=== PATIENT | male | born 1935 | race Two or more races ===

== ENCOUNTER 2017-02-13 18:31 | Inpatient (IN) | payer MEDICARE, OTHER ==
[~2017-02-13] VITALS: Ht 165.1 cm; Wt 70.3 kg
--- NOTE | 2017-02-13 18:45 | NUR ---
BB PRIVATE AMBULANCE FROM [facility] SENT BY PMD FOR VERTIGO AND TROUBLE AMBULATING, NAD NOTED, VSS, EKG AT BS. WAITING FOR EVAL.
--- NOTE | 2017-02-13 19:10 | NUR ---
BLOOD SAMPLE AND URINE SENT TO LAB
[2017-02-13 19:12] LABS: BASOPHILS # (AUTO) 0.4 /CMM (0.0-0.2); BASOPHILS % (AUTO) 4.7 % (0.0-2.0); EOSINOPHILS # (AUTO) 0.2 /CMM (0.0-0.7); EOSINOPHILS % (AUTO) 2.1 % (0.0-6.0); HEMATOCRIT 44 % (39-51); HEMOGLOBIN 14.6 g/dL (13.5-17.5); LYMPHOCYTES # (AUTO) 1.3 /CMM (0.8-4.8); LYMPHOCYTES % (AUTO) 15.1 % (20.0-44.0); MEAN CORPUSCULAR HEMOGLOBIN 28 PG (26.0-33.0); MEAN CORPUSCULAR HGB CONC 33 g/dl (31.0-36.0); MEAN CORPUSCULAR VOLUME 86 fL (80-96); MONOCYTES # (AUTO) 0.7 /CMM (0.1-1.30); MONOCYTES % (AUTO) 8.5 % (2.0-12.0); NEUTROPHILS # (AUTO) 6.1 /CMM (1.8-8.9); NEUTROPHILS % (AUTO) 69.6 % (43.0-81.0); PLATELET COUNT (AUTO) 177 /CMM (150-450); RDW COEFFICIENT OF VARIATION 13.4 (11.5-15.0); RED BLOOD CELL COUNT(AUTO) 5.14 MIL/uL (4.5-6.0); WHITE BLOOD COUNT (AUTO) 8.7 K/uL (4.3-11.0)
[2017-02-13 19:15] LABS: APPEARANCE,URINE Clear (CLEAR); BILIRUBIN,URINE Negative (NEGATIVE); BLOOD, URINE Moderate Ery/uL (NEGATIVE); COLOR,URINE Yellow (YELLOW); KETONES,URINE Negative (NEGATIVE); LEUKOCYTE ESTERASE ,URINE Negative (NEGATIVE); NITRITE, URINE Negative (NEGATIVE); PROTEIN,URINE Negative (NEGATIVE); UGLUCOSE Negative (NEGATIVE); UROBILINOGEN,URINE 0.2 EU/dL (0.2)
[2017-02-13 19:34] LABS: INR 0.94 (0.87-1.13); PROTHROMBIN TIME 9.8 SECS (9.5-12.7)
[2017-02-13 19:38] LABS: BACTERIA,URINE Rare /HPF (None Seen); MUCUS,URINE Few /LPF (None Seen); SQUAMOUS EPITHELIAL CELL,UR Rare /HPF (None Seen); URINE AMORPHOUS URATE Few /HPF (None Seen)
[2017-02-13 19:39] LABS: THYROID STIMULATING HORMONE 0.184 uIU/mL (0.358-3.74)
--- NOTE | 2017-02-13 19:39 | NUR ---
PT TO CT SCAN
[2017-02-13 19:43] LABS: CALCIUM, SERUM 8.8 mg/dL (8.5-10.1); CARBON DIOXIDE 27 mmol/L (21-32); CHLORIDE 105 mmol/L (98-107); GLUCOSE 104 mg/dL (74-106); SODIUM SERUM 139 mmol/L (136-145); UREA NITROGEN, BLOOD 18 mg/dL (7-18)
[2017-02-13 19:45] LABS: TROPONIN I < 0.017 ng/mL (0.00-0.056)
[2017-02-13 19:49] LABS: ALANINE AMINOTRANSFERASE 19 U/L (12-78); ALBUMIN 3.6 g/dL (3.4-5.0); ALCOHOL, BLOOD < 3 mg/dL (0-0); ALKALINE PHOSPHATASE 82 U/L (46-116); ASPARTATE AMINOTRANSFERASE 20 U/L (15-37); BILIRUBIN,DIRECT 0.2 mg/dL (0.0-0.2); BILIRUBIN,TOTAL 1.3 mg/dL (0.2-1.0); TOTAL PROTEIN, SERUM 7.4 g/dL (6.4-8.2)
[2017-02-13 19:52] LABS: ACETAMINOPHEN 0 ug/ml (10-30); SALICYLATE 1.7 mg/dL (2.8-20.0)
--- NOTE | 2017-02-13 20:08 | NUR ---
Landry tolliver in [facility] - 02/13/17 at 2030 by PILY ANA ROSA SUTHERLAND CALLED WITH BED [id number] CALLBACK NUMBER FOR NURSING REPORT: TRANSPORTATION ETA: 21:03
[2017-02-13 23:00] VITALS: BP 144/75
[2017-02-13] MEDS ORDERED: MAGNESIUM HYDROXIDE 30 ML UDC PO PRN (23:30)
[2017-02-13] MEDS ORDERED: ENOXAPARIN SODIUM 40 MG/0.4 ML DISP.SYRIN SQ SCH (23:30)
[2017-02-13] MEDS ORDERED: HYDROCODONE/APAP 5/325MG 1 EACH TABLET PO PRN (23:30)
[2017-02-13] MEDS ORDERED: ACETAMINOPHEN 325 MG TABLET PO PRN (23:30)
[2017-02-13] MEDS ORDERED: ONDANSETRON HCL/PF 4 MG/2 ML VIAL IVP PRN (23:30)
[2017-02-13] MEDS ORDERED: Z GUARD REMEDY 2 OZ OINT TP PRN (23:30)
--- NOTE | 2017-02-13 23:30 | NUR ---
MEASUREMENT AND SENSING TECHNICIAN NOTE: RECEIVED PATIENT FROM ER, NO ACUTE DISTRESS NOTED. BREATHING EVEN AND UNLABORED, NO SOB NOTED. IV TO LAC IN PLACE. ORIENTED PATIENT TO ROOM AND USE OF CALL LIGHT. BED LOCKED AND IN LOWEST POSITION, CALL LIGHT IN REACH. WILL CONTINUE TO MONITOR.
[2017-02-13] MEDS ORDERED: INSU100V26 IJ (23:48)
[2017-02-13] MEDS ORDERED: CARV3.122 PO (23:48)
[2017-02-13] MEDS ORDERED: ATOR10TA PO (23:48)
[2017-02-13] MEDS ORDERED: DONE10TA44 PO (23:48)
[2017-02-13] MEDS ORDERED: ASPI81TA2 PO (23:48)
[2017-02-13] MEDS ORDERED: LOSA25TA13 PO (23:48)
[2017-02-13] MEDS ORDERED: CHOL200026 PO (23:48)
[2017-02-13] MEDS ORDERED: ASCO500T9 PO (23:48)
[2017-02-13] MEDS ORDERED: CALC1TAB30 PO (23:48)
[2017-02-13] MEDS ORDERED: DOCU-25 PO (23:48)
--- NOTE | 2017-02-14 00:15 | NUR ---
MAINTENANCE SERVICE SUPERVISOR NOTE: PATIENT CONFUSED AND REMOVING TELE MONITOR AND WANDERING AROUND ROOM. REORIENTED PATIENT THAT HE IS IN THE HOSPITAL. CALLED ALPINE GUIDE YURIY CLAROS, LORRI IF WE CAN GET A SITTER FOR PATIENT SAFETY AND TO PREVENT FALLS. OK FOR SITTER. WILL CONTINUE TO MONITOR.
[2017-02-14] MEDS ORDERED: ENOXAPARIN SODIUM 40 MG/0.4 ML DISP.SYRIN SQ ONE (00:20)
[2017-02-14] MEDS ORDERED: *INSULIN REGULAR(HUMULIN R)HUM 100 UNIT/ML VIAL SQ PRN (02:00)
[2017-02-14] MEDS ORDERED: DEXTROSE 50%-WATER 50 ML DISP.SYRIN IV PRN (02:00)
--- NOTE | 2017-02-14 06:45 | NUR ---
CONSULTING MANAGER NOTE: RECEIVED PATIENT FROM ER, NO ACUTE DISTRESS NOTED. BREATHING EVEN AND UNLABORED, NO SOB NOTED. IV TO LAC IN PLACE. PATIENT BLOOD SUGAR LEVEL 122 MG/DL, NO INSULIN NEEDED PER SLIDING SCALE. NO S/S OF HYPER/HYPOGLYCEMIA NOTED. BED LOCKED AND IN LOWEST POSITION, CALL LIGHT IN REACH. WILL ENDORSE TO DAY NURSE TO CONTINUE WITH PLAN OF CARE.
--- NOTE | 2017-02-14 07:10 | NUR ---
ACCESS ASSOC NOTES RECEIVED PATIENT IN BED, SLEEPING, AROUSES EASILY. LEADS OFF. BREATHING EVEN AND NON LABORED, ON ROOM AIR, NO SOB. NO IV IN PLACE. WILL RE-INSERT. CALL LIGHT WITHIN REACH. PER NIGHT RN, PATIENT WITH EPISODE WANDERING BEHAVIOR, AND CONFUSION. 1:1 SITTER AT THE BEDSIDE.
[2017-02-14] MEDS: BLOOD SUGAR DIAGNOSTIC 1 EACH STRIP VI SCH ×4 (07:18→21:18)
[2017-02-14 07:52] LABS: BASOPHILS % (AUTO) 0.5 % (0.0-2.0); EOSINOPHILS # (AUTO) 0.2 /CMM (0.0-0.7); EOSINOPHILS % (AUTO) 2.6 % (0.0-6.0); HEMATOCRIT 46 % (39-51); HEMOGLOBIN 14.8 g/dL (13.5-17.5); LYMPHOCYTES # (AUTO) 1.4 /CMM (0.8-4.8); LYMPHOCYTES % (AUTO) 17.2 % (20.0-44.0); MEAN CORPUSCULAR HEMOGLOBIN 29 PG (26.0-33.0); MEAN CORPUSCULAR HGB CONC 33 g/dl (31.0-36.0); MEAN CORPUSCULAR VOLUME 88 fL (80-96); MONOCYTES # (AUTO) 0.8 /CMM (0.1-1.30); MONOCYTES % (AUTO) 10.6 % (2.0-12.0); NEUTROPHILS # (AUTO) 5.4 /CMM (1.8-8.9); NEUTROPHILS % (AUTO) 69.1 % (43.0-81.0); PLATELET COUNT (AUTO) 184 /CMM (150-450); RDW COEFFICIENT OF VARIATION 14.5 (11.5-15.0); WHITE BLOOD COUNT (AUTO) 7.9 K/uL (4.3-11.0)
[2017-02-14 08:00] VITALS: BP 106/59
[2017-02-14 08:06] LABS: CHOLESTEROL 126 mg/dL (<200); HDL CHOLESTEROL 50 mg/dL (40-60); LDL 73 mg/dL (0-99); TRIGLYCERIDES 81 mg/dL (30-150)
[2017-02-14 08:11] LABS: CALCIUM, SERUM 8.8 mg/dL (8.5-10.1); CARBON DIOXIDE 28 mmol/L (21-32); CHLORIDE 107 mmol/L (98-107); GLUCOSE 125 mg/dL (74-106); PHOSPHORUS 3.5 mg/dL (2.5-4.9); POTASSIUM 3.7 mmol/L (3.5-5.1); SODIUM SERUM 143 mmol/L (136-145); UREA NITROGEN, BLOOD 19 mg/dL (7-18)
[2017-02-14] MEDS: DOCUSATE SODIUM 100 MG CAPSULE PO SCH ×2 (08:28→16:47)
[2017-02-14] MEDS: ASPIRIN 81 MG TAB.CHEW PO SCH (08:28)
[2017-02-14] MEDS: LOSARTAN POTASSIUM 25 MG TABLET PO SCH ×2 (08:29→16:47)
[2017-02-14] MEDS: CALCIUM CARB 250MG /VITAMIN D 1 UDTAB PO SCH ×2 (08:29→16:48)
[2017-02-14] MEDS: ASCORBIC ACID 500 MG TABLET PO SCH (08:29)
[2017-02-14] MEDS: CHOLECALCIFEROL 1,000 UNIT TABLET (VIT D3) PO SCH ×3 (08:29→16:48)
[2017-02-14] MEDS ORDERED: DONEPEZIL 5 MG TABLET PO SCH (09:00)
[2017-02-14] MEDS ORDERED: POTASSIUM CHLORIDE 20 MEQ TAB.PRT.SR PO SCH (10:00)
[2017-02-14] MEDS: CARVEDILOL 3.125 MG TABLET PO SCH ×2 (10:00→16:48)
--- NOTE | 2017-02-14 10:13 | NUR ---
EXPLAINED THE IMPORTANCE, RISK AND BENEFITS OF TELE MONITORING AGAIN TO THE PATIENT. PATIENT NOW AGREED TO APPLY LEADS ON HIS CHEST. SINUS CHI HR 53 ON THE MONITOR. WILL CONT TO MONITOR.
[2017-02-14] MEDS: IV NS 0.9% 1,000 ML IV PRN (10:56)
[2017-02-14 12:00] VITALS: BP 149/73
[2017-02-14] MEDS: INSULIN REGULAR, HUMAN 100 UNIT/ML 3 ML VIAL SQ PRN ×2 (12:38→17:06)
[2017-02-14 16:00] VITALS: BP 169/81
[2017-02-14 16:28] VITALS: BP_SYST 169; BP_SYST 172; BP_SYST 177; BP_DIAS 79; BP_DIAS 81; BP_DIAS 86
--- NOTE | 2017-02-14 16:57 | NUR ---
PATIENT REFUSING IVF INFUSION, UNCOOPERATIVE. ATTEMPTED TO REMOVED IV LINE PER MATILDE/SITTER. EDUCATE PATIENT, UNABLE DUE TO HX. DEMENTIA. FREQUENT REMINDERS GIVEN.
[2017-02-14] MEDS: ATORVASTATIN 10 MG TABLET PO SCH (17:39)
[2017-02-14 18:19] VITALS: BP 142/70
--- NOTE | 2017-02-14 18:42 | NUR ---
TEST PILOT CLOSING NOTES PATIENT SITTING UP IN BED, FORGETFUL. REORIENT FREQUENTLY. NO EPISODE OF SYNCOPE DURING THE SHIFT. IV IN RIGHT HAND G22 PATENT AND INTACT, FLUSHES WELL. PATIENT REMOVED LEADS IN HIS CHEST, EDUCATE PATIENT AND ATTEMPTED TO PLACE LEADS BACK ON, PATIENT STILL REFUSING. PRIOR LEADS REMOVAL, SINUS RHYTHM HR 62 ON TELE MONITOR. DENIES PAIN OR ANY DISCOMFORT. BED LOW AND LOCKED. CALL LIGHT WITHIN REACH. 1:1 SITTER AT THE BEDSIDE.
--- NOTE | 2017-02-14 18:55 | NUR ---
Visited patient at bedside, he is awake but confused. Has hx of alzheimers dementia, pt wandering hallways and requires 1:1 sitter for safety. He resides at [facility] in [place] [phone]. Current plan is to dc back to SNF once discharge. Addendum: 02/14/17 at 2235 by JULIANA NOEL RN Amended: Links added.
--- NOTE | 2017-02-14 19:10 | NUR ---
WHILE GIVING REPORT TO NEXT SHIFT RN, EYE ON PATIENT IV NOTED DISLODGED, ASKED PATIENT WHAT HAPPENED TO IV LINE IN HIS LEFT HAND, PATIENT STATED HE DOESN'T KNOW. ENDORSED TO TRANSACTIONAL ATTORNEY RN.
[2017-02-14 20:00] VITALS: BP 129/71
--- NOTE | 2017-02-14 20:20 | NUR ---
MOLDED GOODS EMBOSSING PRESS OPERATOR INITIAL NOTES RECEIVED PATIENT IN BED, FORGETFUL. REORIENT FREQUENTLY. NO EPISODE OF SYNCOPE AT THIS TIME. PATIENT RECEIVED WITH NO IV EXCESS, PULLED OUT, REMOVED LEADS IN HIS CHEST, MANAGED TO PLACE LEADS ON POSTERIOR SIDE OUT VIEW OF PT. EDUCATED PATIENT, PATIENT STILL FORGETFUL. PRIOR LEADS REMOVAL, SINUS RHYTHM HR 97 ON TELE MONITOR. DENIES PAIN OR ANY DISCOMFORT. BED LOW AND LOCKED. CALL LIGHT WITHIN REACH. 1:1 SITTER AT THE BEDSIDE.
[2017-02-14] MEDS: ENOXAPARIN SODIUM 40 MG/0.4 ML DISP.SYRIN SQ SCH (21:17)
[2017-02-15] VITALS: BP 142/77
[2017-02-15] MEDS: IV NS 0.9% 1,000 ML IV PRN ×2 (01:47→05:51)
--- NOTE | 2017-02-15 06:21 | NUR ---
CUT OFF SAWYER CLOSING NOTES ENDORSED PATIENT IN BED, FORGETFUL. REORIENT FREQUENTLY. NO EPISODE OF SYNCOPE AT THIS TIME. PATIENT HAS L-WRIST 22 G PATENT, REMOVED LEADS IN HIS CHEST, MANAGED TO KEEP LEADS ON PT THROUGH SHIFT. EDUCATED PATIENT, PATIENT STILL FORGETFUL. PRIOR LEADS REMOVAL, SINUS RHYTHM HR 97 ON TELE MONITOR. DENIES PAIN OR ANY DISCOMFORT. BED LOW AND LOCKED. CALL LIGHT WITHIN REACH. 1:1 SITTER AT THE BEDSIDE.
[2017-02-15] MEDS: BLOOD SUGAR DIAGNOSTIC 1 EACH STRIP VI SCH ×4 (06:36→21:46)
--- NOTE | 2017-02-15 07:30 | NUR ---
tele bullion weigher: initial assessment received pt in bed awake, a/ox1-2 with confusion and disorientation to time, place, and situation. pt knows his date of , but doesn't know the year now. pt able to make needs known. reality orientation provided prn. continue on 1:1 sitter for safety. pt refuses ivf to be connected. will continue to monitor.
[2017-02-15 08:00] VITALS: BP 139/75
--- NOTE | 2017-02-15 08:00 | NUR ---
tele technical adjuster: notes stand by assist to bathroom, pt voided. denies dizziness, n/v, or any discomfort at this time. monitored closely. stand by assist back to bed. breakfast served. will continue to monitor.
--- NOTE | 2017-02-15 08:10 | NUR ---
tele mosaic layer: notes asked pt if his vaccination and updated, stated, "no, i don't think so." offered influenza and pneumococcal vaccinations, but pt refused.
--- NOTE | 2017-02-15 08:40 | NUR ---
tele pilot control operator: md visit seen and examined by dr. enriquez's physician business services assistant at this time. informed p.a. that pt is refusing iv fluids.
[2017-02-15] MEDS: CARVEDILOL 3.125 MG TABLET PO SCH ×2 (09:00→16:23)
[2017-02-15] MEDS: DOCUSATE SODIUM 100 MG CAPSULE PO SCH ×2 (09:25→16:23)
[2017-02-15] MEDS: ASCORBIC ACID 500 MG TABLET PO SCH (09:25)
[2017-02-15] MEDS: CHOLECALCIFEROL 1,000 UNIT TABLET (VIT D3) PO SCH ×3 (09:25→16:23)
[2017-02-15] MEDS: ASPIRIN 81 MG TAB.CHEW PO SCH (09:26)
[2017-02-15] MEDS: CALCIUM CARB 250MG /VITAMIN D 1 UDTAB PO SCH ×2 (09:26→16:24)
[2017-02-15] MEDS: LOSARTAN POTASSIUM 25 MG TABLET PO SCH ×2 (09:33→16:23)
--- NOTE | 2017-02-15 09:45 | NUR ---
tele blackener: cardio consult seen by dr. malcolm at this time and per md cantor [facility] from my perspective. awaiting md ziegler.
[2017-02-15 10:05] VITALS: BP_SYST 145; BP_SYST 162; BP_SYST 166; BP_DIAS 80; BP_DIAS 82; BP_DIAS 87
--- NOTE | 2017-02-15 10:05 | NUR ---
tele weaving loom operator: notes orthostatic b/p done: lying b/p 145/80, hr 62, sitting b/p 162/87, hr 62, and standing b/p 166/82, hr 63.
--- NOTE | 2017-02-15 11:55 | NUR ---
tele construction equipment mechanic helper: notes bs [id number], pt refused coverage.
[2017-02-15] MEDS: INSULIN REGULAR, HUMAN 100 UNIT/ML 3 ML VIAL SQ PRN ×2 (11:56→21:46)
[2017-02-15 12:00] VITALS: BP 140/70
--- NOTE | 2017-02-15 12:45 | NUR ---
tele director of group sales: notes [facility] (personnel) here and spoke to pt re: d'c to their place tomorrow. gertrude (daughter) aware and agreed for his father to go to their facility. pt appears confused and keeps saying to call her daughter and to pick him up here. reality orientation provided prn. case management coordinating with [facility] re: d'c planning tomorrow.
--- NOTE | 2017-02-15 15:00 | NUR ---
tele bench scientist: notes resting comfortable in bed. continue on 1:1 sitter for safety. will monitor.
[2017-02-15] MEDS: ATORVASTATIN 10 MG TABLET PO SCH (16:23)
--- NOTE | 2017-02-15 18:00 | NUR ---
tele chemical laboratory scientist: notes up and about in room. denies any pain or discomfort. reality orientation provided prn. needs attended. tele sr=62. continue on 1:1 sitter for safety. will continue to monitor.
--- NOTE | 2017-02-15 19:30 | NUR ---
RN NOTES: RECEIVED AWAKE, AMBULATORY, ROAMING AROUND IN HIS ROOM, ALERT AND COHERENT X2, WITH PERIODS OF FORGETFULNESS AND CONFUSION, SPEAKS TAGALOG, ON TELE MONITOR SR-62;WITH BRP,IV CANNULA PATENT ON LH G#22, FALL,SAFETY AND ASPIRATION PRECAUTION OBSERVED, PATIENT IS ON 1;1 SITTER, HIGH RISK FOR FALL. BED LOW AND LOCKED, CALL LIGHT WITHIN EASY REACH, WILL DO FREQUENT ORIENTATION TO REALITY AND SAFETY.
[2017-02-15 20:00] VITALS: BP 155/79
[2017-02-15] MEDS: ENOXAPARIN SODIUM 40 MG/0.4 ML DISP.SYRIN SQ SCH (21:45)
--- NOTE | 2017-02-15 21:47 | NUR ---
RN NOTES: BLOOD SUGAR CHECKED 102,INSULIN NOT GIVEN PER SCALE, WILL CONTINUE TO MONITOR FOR SIGNOF HYPER AND HYPOGLYCEMIA.
--- NOTE | 2017-02-15 22:00 | NUR ---
RN NOTES: REFUSE FOR HIS DENTAL EQUIPMENT REPAIRER TO BE PUT ON, CN AWARE;KEEP ON CLOSE WATCH.
--- NOTE | 2017-02-15 22:00 | NUR ---
RN NOTES: EXPLAINED TO HIM THOROUGHLY REGARDING HIS LOVENOX INJECTION, INITIALLY HE REFUSE BUT LATER ON HE AGREE TO HAVE IT.GIVEN.
[2017-02-16] VITALS: BP 147/83
--- NOTE | 2017-02-16 03:00 | NUR ---
RN NOTES: ASLEEP IN THE NIGHT, AWAKE IN BETWEEN TO USE THE BATHROOM, HE FELT HUNGRY, UNSWEETENED APPLESAUCE GIVEN AT AROUND 330AM.
[2017-02-16 04:00] VITALS: BP 140/77
[2017-02-16 04:15] VITALS: BP 169/84
[2017-02-16 04:30] VITALS: BP 160/83
--- NOTE | 2017-02-16 06:13 | NUR ---
RN NOTES: BLOOD SUGAR CHECKED-91, NO INSULIN GIVEN PER SCALE,WILL CONTINUE TO MONITOR FOR SIGN OF HYPER AND HYPOGLYCEMIA.
[2017-02-16] MEDS: BLOOD SUGAR DIAGNOSTIC 1 EACH STRIP VI SCH ×2 (06:27→12:38)
[2017-02-16] MEDS: INSULIN REGULAR, HUMAN 100 UNIT/ML 3 ML VIAL SQ PRN (06:28)
--- NOTE | 2017-02-16 06:42 | NUR ---
RN NOTES: STILL ASLEEP, ON 1:1 SITTER, HIGH RISK FOR FALL,FOR DISCHARGE PLANNING TO [facility],STILL AWAITING FOR NEURO FOLLOW UP.ENDORSED FOR CONTINUITY OF CARE.
[2017-02-16 08:00] VITALS: BP 141/73
--- NOTE | 2017-02-16 08:00 | NUR ---
DRUM SANDER NOTES PATIENT IN BED RESTING NO SOB OR ACUTE DISTRESS NOTED. BED IN LOW LOCKED POSITION. CALL LIGHT WITHIN REACH. PERIPHERAL IV INTACT PATENT. SITTER AT BEDSIDE WILL CONTINUE TO MONITOR.
[2017-02-16] MEDS: DOCUSATE SODIUM 100 MG CAPSULE PO SCH (08:25)
[2017-02-16] MEDS: ASCORBIC ACID 500 MG TABLET PO SCH (08:25)
[2017-02-16] MEDS: CALCIUM CARB 250MG /VITAMIN D 1 UDTAB PO SCH (08:26)
[2017-02-16] MEDS: ASPIRIN 81 MG TAB.CHEW PO SCH (08:26)
[2017-02-16] MEDS: LOSARTAN POTASSIUM 25 MG TABLET PO SCH (08:26)
[2017-02-16] MEDS: CHOLECALCIFEROL 1,000 UNIT TABLET (VIT D3) PO SCH ×2 (08:26→13:57)
[2017-02-16 08:27] VITALS: BP 146/76
[2017-02-16] MEDS: CARVEDILOL 3.125 MG TABLET PO SCH (08:27)
--- NOTE | 2017-02-16 10:00 | NUR ---
IMPLEMENTATION PROJECT COORDINATOR NOTES PATIENT SEEN AND EVALUATED BY DR. CASTAÑEDA ORDERS NOTED AND CARRIED OUT.
--- NOTE | 2017-02-16 14:00 | NUR ---
DENTAL ASSOCIATE NOTES PATIENT DISCHARGED TO [facility] IN STABLE CONDITION. NO SOB OR ACUTE DISTRESS NOTED. MD AWARE OF ALL ABNORMAL LABS. ALL BELONGINGS ACCOUNTED FOR VERIFIED WITH CHARGE NURSE, BELONGING LIST SIGNED. DISCHARGE PROTOCOL FOLLOWED. REPORT PROVIDED TO GILBERT RN AT SNF. DISCHARGE EDUCATION PROVIDED TO RN AT SNF. PERIPHERAL IV REMOVED WITH MINIMAL BLEEDING NOTED. ID BAND REMOVED. PATIENT TRANSPORTED VIA GURNEY WITH EMT. PATIENTS DAUGHTER MADE AWARE OF TRANSFER VIA TELEPHONE.
== END 2017-02-16 14:15 | DRG 73 ==
LOC: ER 18:38 → TELE 22:31
PROVIDERS: ADMIT Nurse Practitioner Acute Care; ATTEND Nurse Practitioner Acute Care
DX: G90.8 Other disorders of autonomic nervous system (principal); G93.40 Encephalopathy, unspecified; N17.9 Acute kidney failure, unspecified; G30.9 Alzheimer's disease, unspecified; F02.80 Dementia in other diseases classified elsewhere, unspecified severity, without behavioral disturbance, psychotic disturbance, mood disturbance, and anxiety; E11.9 Type 2 diabetes mellitus without complications; R29.6 Repeated falls; E78.5 Hyperlipidemia, unspecified; I10 Essential (primary) hypertension; R55 Syncope and collapse; Z79.4 Long term (current) use of insulin
CPT/HCPCS: 36415; 70450-TC; 71010-TC; 80048-TC; 80061-TC; 80076-TC; 80305; 81000-TC; 82962-TC; 83735-TC; 84100-TC; 84439-TC; 84443-TC; 84484-TC; 85025-TC; 85730-TC; 87081-TC; 93880-TC; A4606; G0480; J1650; J1815; J7030; Z7610